=== PATIENT | male | born 1970 | race Caucasian/White ===

== ENCOUNTER 2017-10-18 20:56 | Observation (INO) ==
[2017-10-18] MEDS ORDERED: MethylPREDNISolone Sod Succinate Inj 125 MG/2 ML Vial IV.PUSH ONE (21:05)
[2017-10-18 21:28] LABS: Baso # (Auto) 0.4 th/mm3 (0.0-0.2); Baso % (Auto) 3.7 % (0.0-2.0); Eos # (Auto) 0.3 th/mm3 (0.0-0.4); Eos % (Auto) 2.9 % (0.0-4.0); Hematocrit 43.7 % (39.0-51.0); Hemoglobin 14.4 gm/dL (13.0-17.0); Lymph # (Auto) 3.2 th/mm3 (1.0-4.8); Lymph % (Auto) 32.9 % (9.0-44.0); Mean Corpuscular Hemoglobin 28.7 pg (27.0-34.0); Mean Corpuscular Volume 86.9 fL (80.0-100.0); Mean Platelet Volume 7.9 fL (7.0-11.0); Mono # (Auto) 0.6 th/mm3 (0.0-0.9); Mono % (Auto) 6.5 % (0.0-8.0); Neut # (Auto) 5.2 th/mm3 (1.8-7.7); Platelet Count 288 th/mm3 (150-450); Red Blood Count 5.03 mil/mm3 (4.50-5.90); Red Cell Distribution Width 12.8 % (11.6-17.2); White Blood Count 9.7 th/mm3 (4.0-11.0)
--- NOTE | 2017-10-18 21:30 | ED ---
[facility] General Chief complaint: Respiratory Symptoms Stated complaint: SOB Time Seen by Provider: 10/18/17 21:05 History of Present Illness HPI narrative: Patient was cleaning his pool and states that he inhaled some of the things in the chlorine tablets and had worsening shortness of breath. She has a history of asthma and states that for the past 2 weeks he has had difficulty in breathing and exact use her inhaler more. He denies a history of intubation. Ports a cough, chest tightness, and sweating. Denies fever or chills. Related Data Home Medications Medication Instructions Recorded Confirmed albuterol sulfate 2.5 mg INHALATION QID PRN 10/18/17 10/18/17 lisinopril 40 mg PO DAILY 10/18/17 10/18/17 Allergies Allergy/AdvReac Type Severity Reaction Status Date / Time No Known Allergies Allergy Unverified 10/18/17 22:17 Review of Systems ROS Unobtainable All other systems reviewed negative except as stated in HPI [facility] Medical History Medical History Asthma (Acute) Hypertension (Acute) Cholecystectomy planned (Acute) Surgical History Surgical History History of lumpectomy (Acute) Social History Social History Substance History: No History of Abuse Second Hand Smoke Exposure: No Smoking Status: Former smoker Tobacco Type: Cigarettes How Often Do You Have a Drink Containing Alcohol: Monthly or less Recent Travel in [facility] within the Last 8 Weeks: No Recent Out of Country Travel within the Last 8 Weeks: No Immunization History Tetanus Immunization: <5 Years Hx Influenza Vaccine This Season: No Exam Narrative Exam Narrative: GENERAL: Diaphoretic SKIN: Focused skin assessment warm/dry. HEAD: Atraumatic. Normocephalic. EYES: Pupils equal and round. No scleral icterus. No injection or drainage. ENT: No nasal bleeding or discharge. Mucous membranes pink and moist. NECK: Trachea midline. No JVD. CARDIOVASCULAR: Regular rate and rhythm. No murmur appreciated. RESPIRATORY: Poor air movement bilaterally, symmetrical wheezes bilaterally. GASTROINTESTINAL: Abdomen soft, non-tender, nondistended. Hepatic and splenic margins not palpable. MUSCULOSKELETAL: No obvious deformities. No clubbing. No cyanosis. No edema. NEUROLOGICAL: Awake and alert. No obvious cranial nerve deficits. Motor grossly within normal limits. Normal speech. PSYCHIATRIC: Appropriate mood and affect; insight and judgment normal. Course Initial Documented Vital Signs Temperature 98.9 F 10/18/17 21:07 Pulse Rate 130 H 10/18/17 21:07 Respiratory Rate 30 H 10/18/17 21:07 Blood Pressure 202/99 H 10/18/17 21:07 Pulse Oximetry 95 10/18/17 21:07 Last Documented Vital Signs Temperature 98.9 F 10/18/17 21:07 Pulse Rate 133 H 10/18/17 21:28 Respiratory Rate 20 10/18/17 21:28 Blood Pressure 202/99 H 10/18/17 21:07 Pulse Oximetry 95 10/18/17 21:10 Medical Decision Making MDM Narrative Medical decision making narrative: Patient presents emergency department in respiratory distress. Patient placed on environmental monitoring specialist, continuous pulse ox, and IV access obtained. Savi page upon patient's arrival in the ER. 25 mg IV Solu-Medrol and 3 duo nebs ordered. As well as EKG, chest x-ray, labs. ECG: Sinus tachy at 136 CXR: CONCLUSION: Minimal bibasilar patchiness consistent with atelectasis and/ or developing infiltrates. Labs: BUN, creatinine, CK, glucose increased Patient given 2g IV magnesium and lisinopril 40mg poo in ER, as well as 1mg IV ativan for anxiety. He is breathing better, moving more air. As XR shows atelectasis vs early infiltrate, and patient reports productive cough that has been increasing for a week, given 1g IV rocephin and 500mg po zithromax. He has been admitted for observation. Differential Diagnosis Differential Diagnosis: Bronchitis, ACS, asthma exacerbation, pneumonia Lab Data Result diagrams: 10/18/17 21:13 10/18/17 21:13 Lab Results 10/18/17 10/18/17 10/18/17 Range/Units 21:13 21:13 21:13 CBC w Diff Auto diff final WBC 9.7 (4.0-11.0) th/mm3 RBC 5.03 (4.50-5.90) mil/mm3 Hgb 14.4 (13.0-17.0) gm/dL Hct 43.7 (39.0-51.0) % MCV 86.9 (80.0-100.0) fL MCH 28.7 (27.0-34.0) pg MCHC 33.0 (32.0-36.0) % RDW 12.8 (11.6-17.2) % Plt Count 288 (150-450) th/mm3 MPV 7.9 (7.0-11.0) fL Neut % (Auto) 54.0 (16.0-70.0) % Lymph % (Auto) 32.9 (9.0-44.0) % Morgan % (Auto) 6.5 (0.0-8.0) % Eos % (Auto) 2.9 (0.0-4.0) % Baso % (Auto) 3.7 H (0.0-2.0) % Neut # (Auto) 5.2 (1.8-7.7) th/mm3 Lymph # (Auto) 3.2 (1.0-4.8) th/mm3 Morgan # (Auto) 0.6 (0.0-0.9) th/mm3 Eos # (Auto) 0.3 (0.0-0.4) th/mm3 Baso # (Auto) 0.4 H (0.0-0.2) th/mm3 WBC Differential . Differential Comment . PT 10.0 (9.8-11.6) sec INR 1.0 Ratio APTT 20.5 L (24.3-30.1) sec Puncture Site Patient Temperature O2 Saturation (90-100) % ABG pH (7.380-7.420) ABG pCO2 (38-42) mmHg ABG pO2 (61-120) mmHg ABG HCO3 (22-26) mmol/L ABG O2 Content (12.0-20.0) Vol % ABG Base Excess (-2-2) mmol/L ABG Methemoglobin (0-2) % Hemoglobin (12.0-16.0) G/DL Carboxyhemoglobin (0-4) % O2 Delivery Device Liter Flow L/M Inspired O2 % Critical Value Sodium 140 (136-145) meq/L Potassium 3.5 (3.5-5.1) meq/L Chloride 104 (98-107) meq/L Carbon Dioxide 25.3 (21.0-32.0) meq/L Anion Gap 11 (5-15) meq/L BUN 19 H (7-18) mg/dL Creatinine 1.50 H (0.60-1.30) mg/dL Estimated GFR 50 L (>89) mL/min Random Glucose 243 H (74-106) mg/dL Calcium 9.6 (8.5-10.1) mg/dL Total Bilirubin 0.4 (0.2-1.0) mg/dL AST 32 (15-37) U/L ALT 63 (12-78) U/L Alkaline Phosphatase 94 (45-117) U/L Total Creatine Kinase 312 H (39-308) U/L CK-MB (CK-2) 2.3 (0.5-3.6) ng/mL CK-MB (CK-2) % 0.7 (0.0-4.0) % Troponin I Less than 0.02 L (0.02-0.05) ng/mL B-Natriuretic Peptide (0-100) pg/mL Total Protein 8.4 H (6.4-8.2) g/dL Albumin 4.2 (3.4-5.0) g/dL 10/18/17 10/18/17 Range/Units 21:13 21:54 CBC w Diff WBC (4.0-11.0) th/mm3 RBC (4.50-5.90) mil/mm3 Hgb (13.0-17.0) gm/dL Hct (39.0-51.0) % MCV (80.0-100.0) fL MCH (27.0-34.0) pg MCHC (32.0-36.0) % RDW (11.6-17.2) % Plt Count (150-450) th/mm3 MPV (7.0-11.0) fL Neut % (Auto) (16.0-70.0) % Lymph % (Auto) (9.0-44.0) % Morgan % (Auto) (0.0-8.0) % Eos % (Auto) (0.0-4.0) % Baso % (Auto) (0.0-2.0) % Neut # (Auto) (1.8-7.7) th/mm3 Lymph # (Auto) (1.0-4.8) th/mm3 Morgan # (Auto) (0.0-0.9) th/mm3 Eos # (Auto) (0.0-0.4) th/mm3 Baso # (Auto) (0.0-0.2) th/mm3 WBC Differential Differential Comment PT (9.8-11.6) sec INR Ratio APTT (24.3-30.1) sec Puncture Site Right brachial Patient Temperature 98.6 O2 Saturation 91 (90-100) % ABG pH 7.42 (7.380-7.420) ABG pCO2 37 L (38-42) mmHg ABG pO2 64 (61-120) mmHg ABG HCO3 24 (22-26) mmol/L ABG O2 Content 17.8 (12.0-20.0) Vol % ABG Base Excess -0.2 (-2-2) mmol/L ABG Methemoglobin 1.2 (0-2) % Hemoglobin 14.0 (12.0-16.0) G/DL Carboxyhemoglobin 1.2 (0-4) % O2 Delivery Device Nasal cannula Liter Flow 3.00 L/M Inspired O2 33 % Critical Value No Sodium (136-145) meq/L Potassium (3.5-5.1) meq/L Chloride (98-107) meq/L Carbon Dioxide (21.0-32.0) meq/L Anion Gap (5-15) meq/L BUN (7-18) mg/dL Creatinine (0.60-1.30) mg/dL Estimated GFR (>89) mL/min Random Glucose (74-106) mg/dL Calcium (8.5-10.1) mg/dL Total Bilirubin (0.2-1.0) mg/dL AST (15-37) U/L ALT (12-78) U/L Alkaline Phosphatase (45-117) U/L Total Creatine Kinase (39-308) U/L CK-MB (CK-2) (0.5-3.6) ng/mL CK-MB (CK-2) % (0.0-4.0) % Troponin I (0.02-0.05) ng/mL B-Natriuretic Peptide 5 (0-100) pg/mL Total Protein (6.4-8.2) g/dL Albumin (3.4-5.0) g/dL Imaging Data Radiologist's impression: ITS Impressions Chest X-Ray 10/18/17 21:06 CONCLUSION: Minimal bibasilar patchiness consistent with atelectasis and/or developing infiltrates. Discharge Plan Discharge Disposition Patient Disposition: 30 Still Patient Discharge Condition Condition: Stable Discharge Details Discharge Problem: Asthma exacerbation Physicians Team ED Provider: Eleanor Arvizu Primary Care Provider: Moo Woods Rxs /Orders / Referrals /Forms Prescriptions: No Action lisinopril 40 mg Tablet 40 mg PO DAILY RF: 0 albuterol sulfate 2.5 mg/0.5 mL Solution For Nebulization 2.5 mg INHALATION QID PRN (Reason: Respiratory Distress) RF: 0 Status ED Status: With Doctor
[2017-10-18] MEDS ORDERED: Magnesium Sulfate Inj 2 GM in Sodium Chlor 0.9% Inj 96 ML IV.SIG ONE (21:39)
[2017-10-18 21:45] LABS: Chloride 104 meq/L (98-107); Potassium 3.5 meq/L (3.5-5.1); Sodium 140 meq/L (136-145)
[2017-10-18] MEDS ORDERED: Lisinopril 20 MG Tablet PO ONE (21:47)
[2017-10-18 21:48] LABS: Activated Partial Thrombo Time 20.5 sec (24.3-30.1)
[2017-10-18 21:50] LABS: Calcium 9.6 mg/dL (8.5-10.1)
[2017-10-18 21:51] LABS: Albumin 4.2 g/dL (3.4-5.0); Anion Gap 11 meq/L (5-15); Blood Urea Nitrogen 19 mg/dL (7-18); Carbon Dioxide 25.3 meq/L (21.0-32.0); Glucose,Random 243 mg/dL (74-106)
[2017-10-18 21:53] LABS: Alanine Aminotransferase 63 U/L (12-78)
[2017-10-18 21:54] LABS: Aspartate Aminotransferase 32 U/L (15-37); Glomerular Filtration Rate 50 mL/min (>89)
[2017-10-18 21:55] LABS: Total Protein 8.4 g/dL (6.4-8.2)
[2017-10-18 21:56] LABS: Alkaline Phosphatase 94 U/L (45-117); Creatine Kinase 312 U/L (39-308)
[2017-10-18 22:07] LABS: ABG Base Excess -0.2 mmol/L (-2-2); ABG PCO2 37 mmHg (38-42); ABG PO2 64 mmHg (61-120)
[2017-10-18 22:09] LABS: CKMB Percent 0.7 % (0.0-4.0); Creatine Kinase MB 2.3 ng/mL (0.5-3.6)
--- NOTE | 2017-10-18 22:42 | XR ---
EXAM DATE: 10/18/2017 10:20 PM EDT AGE/SEX: 47 years / Male INDICATIONS: Shortness of breath. CLINICAL DATA: This is the patient's initial encounter. Patient reports that signs and symptoms have been present for 2 days and indicates a pain score of 0/10. MEDICAL/SURGICAL HISTORY: . Hypertension. Asthma. None. COMPARISON: [facility], CHEST SINGLE AP, 12/17/2015. . FINDINGS: Minimal bibasilar patchiness is noted consistent with atelectasis and/or developing infiltrates. The heart is normal. The pulmonary vascular pattern is normal. CONCLUSION: Minimal bibasilar patchiness consistent with atelectasis and/or developing infiltrates. Electronically signed by: Zach English MD 10/18/2017 10:41 PM EDT
[2017-10-18] MEDS ORDERED: Azithromycin 250 MG Tablet PO ONE (22:46)
[2017-10-18] MEDS ORDERED: Temazepam 15 MG Capsule PO PRN (23:04)
[2017-10-18] MEDS ORDERED: Bisacodyl 10 MG Supp RECTAL PRN (23:04)
[2017-10-19] MEDS: MethylPREDNISolone Sod Succinate Inj 40 MG/ML Vial IV.PUSH SCH ×2 (01:17→05:09)
[2017-10-19] MEDS: Sod Chloride 0.9% Inj 1,000 ML IV.CONT SCH ×2 (01:17→09:04)
[2017-10-19 07:40] LABS: Baso # (Auto) 0.1 th/mm3 (0.0-0.2); Baso % (Auto) 0.5 % (0.0-2.0); Eos % (Auto) 0.2 % (0.0-4.0); Hematocrit 37.9 % (39.0-51.0); Hemoglobin 13.1 gm/dL (13.0-17.0); Lymph # (Auto) 0.7 th/mm3 (1.0-4.8); Lymph % (Auto) 5.5 % (9.0-44.0); Mean Corpuscular HGB Conc 34.6 % (32.0-36.0); Mean Corpuscular Hemoglobin 30.1 pg (27.0-34.0); Mono # (Auto) 0.1 th/mm3 (0.0-0.9); Mono % (Auto) 0.5 % (0.0-8.0); Neut # (Auto) 11.9 th/mm3 (1.8-7.7); Neut % (Auto) 93.3 % (16.0-70.0); Platelet Count 243 th/mm3 (150-450); Red Blood Count 4.36 mil/mm3 (4.50-5.90); Red Cell Distribution Width 12.6 % (11.6-17.2); White Blood Count 12.8 th/mm3 (4.0-11.0)
[2017-10-19 08:18] LABS: Calcium 9.1 mg/dL (8.5-10.1); Carbon Dioxide 24.6 meq/L (21.0-32.0)
[2017-10-19] MEDS ORDERED: Lisinopril 20 MG Tablet PO SCH (09:00)
[2017-10-19] MEDS ORDERED: Senna/Docusate Sodium 8.6/50 MG Tablet PO SCH (09:00)
--- NOTE | 2017-10-19 10:25 | ECG ---
Date Performed: 10/18/2017 Time Performed: 21:51:30 PTAGE: 47 years EKG: SINUS TACHYCARDIA NONSPECIFIC T-WAVE ABNORMALITY ABNORMAL RHYTHM ECG PREVIOUS TRACING : 12/17/2015 04.44 Compared to previous tracing, heart rate has increased. DOCTOR: Jim Durbin Interpretating Date/Time 10/19/2017 10:24:48
--- NOTE | 2017-10-19 10:34 | P.HP ---
History of Present Illness Primary Care Physician: Moo Woods DO Chief Complaint: Shortness of breath History of Present Illness: 47-year-old male with known history of hypertension, asthma, tobacco use who presented to the emergency department because of acute onset of shortness of breath and dyspnea. Patient is in normal state of health until yesterday when he was given to clean the pool and he indicated that he had a strong chemical chlorine smell in the face and had acute onset of shortness of breath, difficulty breathing. He tried to use his inhaler without any significant benefit so he came to emergency department for evaluation. Upon presentation patient did have elevated blood pressure as well as shortness of breath and dyspnea. Patient was given nebulizer treatments, Solu-Medrol. He states that his breathing did not improve after the treatment in the emergency department so that was recommended by the ER physician the patient be observed in the hospital for further evaluation and management. - Diagnosis (1) Asthma exacerbation (2) Accelerated hypertension Inpatient Certification: I certify that the inpatient services were ordered in accordance with Medicare regulations governing the order. This includes certification that hospital inpatient services are reasonable and necessary and in the case of services not specified as inpatient-only under 42 CFR 419.22(n), that they are appropriately provided as inpatient services in accordance to with the 2-midnight benchmark under 43 CFR 412.3(e) Review of Systems Respiratory: Reports shortness of breath PMFSH - History History Provided By: Patient - Medical History Medical History: Medical History (Last Updated 10/18/17 @ 21:09 by Isaias Banegas) Asthma (Acute) Hypertension (Acute) - Surgical History Surgical History: Surgical History (Last Updated 10/19/17 @ 10:16 by ROBERTO Teresa) History of lumpectomy (Acute) History of cholecystectomy - Family History Family History: Family History (Last Updated 10/19/17 @ 10:16 by ROBERTO Teresa) Mother Family history of breast cancer Family history of hypertension Father Family history of hypertension - Tobacco History Second Hand Smoke Exposure: No Tobacco Use In Past 30 Days: Yes (quit 9 days ago) Smoking Status: Former smoker Tobacco Type: Cigars - Alcohol History How Often Do You Have a Drink Containing Alcohol: 2 to 3 times a week - Substance Use History Substance History: No History of Abuse - Travel History Recent Travel in the [place] Within the Last 8 Weeks: No Recent Travel Out of the Country Within the Last 8 Weeks: No - Immunization History Tetanus Immunization: <5 Years Hx Influenza Vaccine This Season: No Medications and Allergies Active Medications: Active Medications Al Hydroxide/Mg Hydroxide (Milk Of Magnesia Liq) 30 ml PO Q12H PRN PRN Reason: Mild Constipation Albuterol (Duoneb Neb (Alo)) 1 ampul NEB Q4HR NEB [facility] Last Admin: 10/19/17 08:50 Dose: 1 ampul Bisacodyl (Dulcolax Supp) 10 mg RECTAL DAILY PRN PRN Reason: SEVERE CONSITIPATION Clonidine HCl (Catapres) 0.1 mg PO Q6H PRN PRN Reason: SBP>160, DBP>90 Sodium Chloride (Ns Inj) 1,000 mls @ 125 mls/hr IV.CONT .Q8H [facility] Last Admin: 10/19/17 09:04 Dose: 125 mls/hr Lactulose (Lactulose Liq) 30 ml PO DAILY PRN PRN Reason: SEVERE CONSITIPATION Lisinopril (Prinivil) 40 mg PO DAILY [facility] Last Admin: 10/19/17 09:03 Dose: 40 mg Methylprednisolone Sodium Succinate (Solumedrol Inj) 60 mg IV.PUSH Q6H [facility] Last Admin: 10/19/17 05:09 Dose: 60 mg Senna/Docusate Sodium (Shante-Colace) 1 tab PO BID [facility] Last Admin: 10/19/17 09:05 Dose: Not Given Sennosides (Senokot) 17.2 mg PO Q12H PRN PRN Reason: Moderate Constipation Sodium Chloride (Ns Flush) 2 ml IV.FLUSH BID [facility] Sodium Chloride (Ns Flush) 2 ml IV.FLUSH PRN PRN PRN Reason: FLUSH AFTER USING IV ACCESS Temazepam (Restoril) 15 mg PO HS PRN PRN Reason: INSOMNIA Allergies Allergy/AdvReac Type Severity Reaction Status Date / Time No Known Allergies Allergy Unverified 10/18/17 22:17 Home Medications Medication Instructions Recorded Confirmed Type lisinopril 40 mg PO DAILY 10/18/17 10/18/17 History Exam Vital signs: Vital Signs 10/18/17 21:07 10/18/17 21:10 10/18/17 21:19 Temperature 98.9 F Pulse Rate 130 H 127 H 129 H Respiratory Rate 30 H 24 20 Blood Pressure 202/99 H Pulse Oximetry 95 95 10/18/17 21:28 10/18/17 23:00 10/18/17 23:31 Temperature Pulse Rate 133 H 120 H Respiratory Rate 20 20 Blood Pressure 147/63 H Pulse Oximetry 95 98 10/18/17 23:32 10/18/17 23:42 10/19/17 00:40 Temperature Pulse Rate 116 H 114 H 103 H Respiratory Rate 18 20 20 Blood Pressure 116/68 98/56 L Pulse Oximetry 96 10/19/17 01:30 10/19/17 03:48 10/19/17 03:51 Temperature 97.4 F L Pulse Rate 110 H 105 H Respiratory Rate 19 18 Blood Pressure 129/71 Pulse Oximetry 99 95 10/19/17 04:00 10/19/17 07:42 10/19/17 08:54 Temperature 97.5 F L 96.9 F L Pulse Rate 104 H 106 H 111 H Respiratory Rate 17 20 18 Blood Pressure 128/68 135/81 Pulse Oximetry 95 94 L 94 L Intake & Output 10/18/17 10/19/17 10/19/17 18:59 06:59 18:59 Intake Total 400 / 400 1000 / 1000 Balance 400 / 400 1000 / 1000 Weight 134.9 kg Intake: IV 200 / 200 1000 / 1000 NS Inj 1,000 ML @ 125 mls/hr IV 1000 / 1000 .CONT .Q8H [facility] Rx#:[id number] Magnesium Sulfate Inj 2 GM In 100 / 100 NS Inj 96 ML @ 50 mls/hr IV.SIG ONCE ONE Rx#:[id number] Rocephin Inj 1,000 MG In NS Inj 100 / 100 100 ML @ 200 mls/hr IV.SIG ONCE ONE Rx#:[id number] Oral 200 / 200 Other: # Voids 5 Weight On Admission 134.9 kg Narrative: GENERAL: Well-developed, well-nourished, in no acute distress. alert and orientated HEENT: Head is normocephalic without any lesions or masses noted. Facial features are symmetric. Eyes: Pupils equal round reactive to light. Extraocular muscles are intact. Conjunctivae were clear. Oropharyngeal: Pharynx without any erythema edema. Tongue is midline without deviation. Buccal mucosa is moist without any masses or lesions NECK: Supple without any masses. Trachea midline no deviation. No JVD, no bruits are appreciated CARDIAC: Regular rhythm, regular rate. S1/S2 are heard. No murmurs gallops or rubs. LUNGS: Clear to auscultation bilaterally. No wheeze, rhonchi or rales. No use of accessory muscles on inspiration or expiration. ABDOMEN: Soft, nontender. Nondistended. Bowel sounds heard in all 4 quadrants. No organomegaly or masses. Negative rebound, negative guarding EXTREMITIES: No edema, pulses are equal bilaterally. No cyanosis or clubbing NEUROLOGY: Mood and affect appear appropriate. Cranial nerves II through XII grossly intact. Muscle strength 5/5 in upper and lower extremities bilaterally. Deep tendon reflexes are 2+ in upper and lower extremities bilaterally. Results - Labs CBC & Chem 7: 10/19/17 06:20 10/19/17 06:20 Labs: Laboratory Results - last 24 hr 10/18/17 10/18/17 10/18/17 21:13 21:13 21:13 CBC w Diff Auto diff final WBC 9.7 RBC 5.03 Hgb 14.4 Hct 43.7 MCV 86.9 MCH 28.7 MCHC 33.0 RDW 12.8 Plt Count 288 MPV 7.9 Neut % (Auto) 54.0 Lymph % (Auto) 32.9 Sibley % (Auto) 6.5 Eos % (Auto) 2.9 Baso % (Auto) 3.7 H Neut # (Auto) 5.2 Lymph # (Auto) 3.2 Sibley # (Auto) 0.6 Eos # (Auto) 0.3 Baso # (Auto) 0.4 H WBC Differential . Differential Comment . PT 10.0 INR 1.0 APTT 20.5 L Puncture Site Patient Temperature O2 Saturation ABG pH ABG pCO2 ABG pO2 ABG HCO3 ABG O2 Content ABG Base Excess ABG Methemoglobin Hemoglobin Carboxyhemoglobin O2 Delivery Device Liter Flow Inspired O2 Critical Value Sodium 140 Potassium 3.5 Chloride 104 Carbon Dioxide 25.3 Anion Gap 11 BUN 19 H Creatinine 1.50 H Estimated GFR 50 L Random Glucose 243 H Calcium 9.6 Total Bilirubin 0.4 AST 32 ALT 63 Alkaline Phosphatase 94 Total Creatine Kinase 312 H CK-MB (CK-2) 2.3 CK-MB (CK-2) % 0.7 Troponin I Less than 0.02 L B-Natriuretic Peptide Total Protein 8.4 H Albumin 4.2 10/18/17 10/18/17 10/19/17 21:13 21:54 06:20 CBC w Diff Auto diff final WBC 12.8 H RBC 4.36 L Hgb 13.1 Hct 37.9 L MCV 87.0 MCH 30.1 MCHC 34.6 RDW 12.6 Plt Count 243 MPV 8.0 Neut % (Auto) 93.3 H Lymph % (Auto) 5.5 L Sibley % (Auto) 0.5 Eos % (Auto) 0.2 Baso % (Auto) 0.5 Neut # (Auto) 11.9 H Lymph # (Auto) 0.7 L Sibley # (Auto) 0.1 Eos # (Auto) 0.0 Baso # (Auto) 0.1 WBC Differential . Differential Comment . PT INR APTT Puncture Site Right brachial Patient Temperature 98.6 O2 Saturation 91 ABG pH 7.42 ABG pCO2 37 L ABG pO2 64 ABG HCO3 24 ABG O2 Content 17.8 ABG Base Excess -0.2 ABG Methemoglobin 1.2 Hemoglobin 14.0 Carboxyhemoglobin 1.2 O2 Delivery Device Nasal cannula Liter Flow 3.00 Inspired O2 33 Critical Value No Sodium Potassium Chloride Carbon Dioxide Anion Gap BUN Creatinine Estimated GFR Random Glucose Calcium Total Bilirubin AST ALT Alkaline Phosphatase Total Creatine Kinase CK-MB (CK-2) CK-MB (CK-2) % Troponin I B-Natriuretic Peptide 5 Total Protein Albumin 10/19/17 06:20 CBC w Diff WBC RBC Hgb Hct MCV MCH MCHC RDW Plt Count MPV Neut % (Auto) Lymph % (Auto) Sibley % (Auto) Eos % (Auto) Baso % (Auto) Neut # (Auto) Lymph # (Auto) Sibley # (Auto) Eos # (Auto) Baso # (Auto) WBC Differential Differential Comment PT INR APTT Puncture Site Patient Temperature O2 Saturation ABG pH ABG pCO2 ABG pO2 ABG HCO3 ABG O2 Content ABG Base Excess ABG Methemoglobin Hemoglobin Carboxyhemoglobin O2 Delivery Device Liter Flow Inspired O2 Critical Value Sodium 139 Potassium 4.0 Chloride 104 Carbon Dioxide 24.6 Anion Gap 10 BUN 17 Creatinine 1.30 Estimated GFR 59 L Random Glucose 291 H Calcium 9.1 Total Bilirubin AST ALT Alkaline Phosphatase Total Creatine Kinase CK-MB (CK-2) CK-MB (CK-2) % Troponin I B-Natriuretic Peptide Total Protein Albumin - Imaging Impressions Chest X-Ray 10/18/17 21:06 CONCLUSION: Minimal bibasilar patchiness consistent with atelectasis and/or developing infiltrates. Caprini VTE Risk Assessment Caprini VTE Risk Assessment: No/Low Risk (score <= 1) Caprini Risk Assessment Model: Point Value = 1 Point Value = 2 Point Value = 3 Point Value = 5 Age 41-60 Minor surgery BMI > 25 kg/m2 Swollen legs Varicose veins or History of unexplained or recurrent spontaneous Oral contraceptives or hormone replacement Sepsis (< 1 month) Serious lung disease, including pneumonia (< 1 month) Abnormal pulmonary function Acute myocardial infarction Congestive heart failure (< 1 month) History of inflammatory bowel disease Medical patient at bed rest Age 61-74 Arthroscopic surgery Major open surgery (> 45 min) Laparoscopic surgery (> 45 min) Malignancy Confined to bed (> 72 hours) Immobilizing plaster cast Central venous access Age >= 75 History of VTE Family history of VTE Factor V Leiden Prothrombin [id number] Lupus anticoagulant Anticardiolipin antibodies Elevated serum homocysteine Heparin-induced thrombocytopenia Other congenital or acquired thrombophilia Stroke (< 1 month) Elective arthroplasty Hip, pelvis, or leg fracture Acute spinal cord injury (< 1 month) Prophylaxis Regimen: Total Risk Factor Score Risk Level Prophylaxis Regimen 0-1 Low Early ambulation 2 Moderate Order ONE of the following: *Sequential Compression Device (SCD) *Heparin 5000 units SQ BID 3-4 Higher Order ONE of the following medications: *Heparin 5000 units SQ TID *Enoxaparin/Lovenox 40 mg SQ daily (WT < 150 kg, CrCl > 30 mL/min) *Enoxaparin/Lovenox 30 mg SQ daily (WT < 150 kg, CrCl > 10-29 mL/min) *Enoxaparin/Lovenox 30 mg SQ BID (WT < 150 kg, CrCl > 30 mL/min) AND/OR *Sequential Compression Device (SCD) 5 or more Highest Order ONE of the following medications: *Heparin 5000 units SQ TID (Preferred with Epidurals) *Enoxaparin/Lovenox 40 mg SQ daily (WT < 150 kg, CrCl > 30 mL/min) *Enoxaparin/Lovenox 30 mg SQ daily (WT < 150 kg, CrCl > 10-29 mL/min) *Enoxaparin/Lovenox 30 mg SQ BID (WT < 150 kg, CrCl > 30 mL/min) AND *Sequential Compression Device (SCD) Assessment and Plan - Assessment (1) Asthma exacerbation Code(s): J45.901 - Unspecified asthma with (acute) exacerbation Status: Resolved Plan: -Patient was admitted with O2 supplementation, however he has been weaned off of this time. O2 sats have been greater than 92% -Continue Solu-Medrol -Continue nebulizer treatments -Patient states that he would like to have a nebulizer for at home, and he needs refills of his albuterol medication (2) Accelerated hypertension Code(s): I10 - Essential (primary) hypertension Status: Resolved Plan: -Patient blood pressure back to normal now after treatment for his asthma exacerbation -Continue home medication - Plan DVT prevention -Low risk, early ambulation Discharge Planning: Discharge home in stable condition Activity: Ad elizabeth. Diet: Healthy heart diet Medication per medication reconciliation Follow-up with primary medical doctor in 1 week (1) Asthma exacerbation Qualifiers: Asthma severity: severe Asthma persistence: unspecified Qualified Code(s): J45.901 - Unspecified asthma with (acute) exacerbation
== END 2017-10-19 11:43 | disposition home or self-care (01) ==
LOC: PHEDA 20:56 → PH3 20:56 → PHED 20:56 → PH3 10-19 00:27
PROVIDERS: ADMIT Internal Medicine; ATTEND Internal Medicine